=== PATIENT | male | born 1955 | race Caucasian/White ===

== ENCOUNTER → 2016-09-02 | Outpatient (CLI) | payer OTHER ==
[2016-09-03 14:51] LABS: BLOOD UREA NITROGEN 16 mg/dL (7-22); CHLORIDE 101 meq/L (98-112); EST GLOMERULAR FILTRATION > 60 (>60 ml/min/1.73m(2)); GLUCOSE 101 mg/dL (78-110); POTASSIUM 4.8 meq/L (3.8-5.2); SODIUM 141 meq/L (135-145)
== END ==
LOC: LAB 14:27
PROVIDERS: ATTEND Physician Assistant Medical
DX: Z01.818 Encounter for other preprocedural examination (principal); R14.0 Abdominal distension (gaseous); F17.210 Nicotine dependence, cigarettes, uncomplicated
CPT/HCPCS: 80048

== ENCOUNTER → 2017-01-09 | Outpatient (CLI) | payer OTHER | LOC: RT 11:26 | PROVIDERS: ATTEND Physician Assistant Medical | DX: R09.02 Hypoxemia (principal); R06.02 Shortness of breath | CPT/HCPCS: 94760 ==